=== PATIENT | male | born 1960 | race African-American/Black ===

== ENCOUNTER 2018-05-27 11:05 | Inpatient (IN) | payer OTHER ==
[2018-05-27 12:26] VITALS: BMI 24.6
--- NOTE | 2018-05-27 16:05 | HP ---
CIWA Score - CIWA Score Nausea/Vomitin-No Nausea/No Vomiting Muscle Tremors: 2 Anxiety: 2 Agitation: 2 Paroxysmal Sweats: 2 Orientation: 1-Uncertain about Date Tacttile Disturbances: 0-None Auditory Disturbances: 0-None Visual Disturbances: 0-None Headache: 3-Moderate CIWA-Ar Total Score: 12 Admission [facility] - HPI Chief Complaint: ETOH WITHDRAWAL SYMPTOMS AND COCAINE DEPENDENCE. Allergies/Adverse Reactions: Allergies Allergy/AdvReac Type Severity Reaction Status Date / Time No Known Allergies Allergy Verified 05/27/18 14:58 History of Present Illness: PATIENT PRESENTS WITH ETOH WITHDRAWAL SYMPTOMS AND COCAINE DEPENDENCE. PATIENT BEGAN DRINKING AT AGE 20. PATIENT DRINKS (3) 6 PACKS OF BEER DAILY AND SMOKES 50 DOLLARS OF CRACK DAILY. PATIENT DENIES HX OF SEIZURES. LAST TIME HE USED SUBSTANCES WAS ONE DAY AGO. PATIENT ATTEMPTED DETOX A FEW MONTHS AGO BUT IS FIRST TIME ADMISSION HERE AT [facility]. PMH GLAUCOMA, HLD, DM AND LEGALLY BLIND IN RIGHT EYE. DENIES SI/HI AND SUICIDE ATTEMPTS. Exam Limitations: No Limitations - Ebola screening Have you traveled outside of the country in the last 21 days: No Have you had contact with anyone from an Ebola affected area: No Have you been sick,other than usual withdrawal symptoms: No Do you have a fever: No - Review of Systems Constitutional: Chills, Night Sweats, Changes in sleep EENT: reports: Other (LEGALLY BLIND RIGHT EYE) Respiratory: reports: No Symptoms reported Cardiac: reports: No Symptoms Reported GI: reports: Poor Fluid Intake : reports: Frequency Musculoskeletal: reports: Back Pain, Muscle Pain Integumentary: reports: Sweating Neuro: reports: Tremors Endocrine: reports: No Symptoms Reported Hematology: reports: No Symptoms Reported Psychiatric: reports: Anxious, Depressed Patient History - Patient Medical History Hx Anemia: No Hx Asthma: No Hx Chronic Obstructive Pulmonary Disease (COPD): No Hx Cancer: No Hx Cardiac Disorders: No Hx Congestive Heart Failure: No Hx Hypertension: Yes Hx Hypercholesterolemia: Yes Hx Pacemaker: No HX Cerebrovascular Accident: No Hx Seizures: No Hx Dementia: No Hx Diabetes: Yes (IDDM) Hx Gastrointestinal Disorders: No Hx Liver Disease: No Hx Genitourinary Disorders: No Hx Sexually Transmitted Disorders: No Hx Renal Disease (ESRD): No Hx Thyroid Disease: No Hx Human Immunodeficiency Virus (HIV): No Hx Hepatitis C: No Hx Depression: No Hx Suicide Attempt: No Hx Bipolar Disorder: No Hx Schizophrenia: No - Patient Surgical History Past Surgical History: Yes Hx Neurologic Surgery: No Hx Cataract Extraction: No Hx Cardiac Surgery: No Hx Lung Surgery: No Hx Breast Surgery: No Hx Breast Biopsy: No Hx Abdominal Surgery: No Hx Appendectomy: No Hx Cholecystectomy: No Hx Genitourinary Surgery: No Hx Orthopedic Surgery: No Other Surgical History: right ey sx for glaucoma in 2013/right inguinal hernia repair in 2002 - PPD History Previous Implant?: Yes Documented Results: Negative w/o proof Implanted On Prior [facility] Admission?: No PPD to be Administered?: Yes - Smoking Cessation Smoking history: Current every day smoker Have you smoked in the past 12 months: Yes Aproximately how many cigarettes per day: 5 Hx Chewing Tobacco Use: No Initiated information on smoking cessation: Yes 'Breaking Loose' booklet given: 05/27/18 - Substance & Tx. History Hx Alcohol Use: Yes Hx Substance Use: Yes Substance Use Type: Alcohol, Cocaine Hx Substance Use Treatment: Yes - Substances Abused Crack Route: Smoking Frequency: Daily Amount used: $50-60 Age of first use: 24 Date of Last Use: 05/26/18 Alcohol-vodka/beer Route: Oral Frequency: Daily Amount used: 1 pt./3 (24 oz.) Age of first use: 20 Date of Last Use: 05/26/18 Family Disease History - Family Disease History Family Disease History: Other: Father (SUBSTANCE ABUSE), Mother (ALCOHOLISM) Admission Physical Exam [facility] - Vital Signs Vital Signs: Vital Signs - 24 hr 05/27/18 12:20 Temperature 96.0 F L Pulse Rate 92 H Respiratory 18 Rate Blood Pressure 112/72 - Physical General Appearance: Yes: Appropriately Dressed, Sweating, Anxious HEENTM: Yes: EOMI, Hearing grossly Normal, Normocephalic, Normal Voice, CAYLA ( RIGHT EYE BLINDNESS, LEFT EYE +PERRLA), Pharynx Normal Respiratory: Yes: Chest Non-Tender, Lungs Clear, Normal Breath Sounds, No Respiratory Distress, No Accessory Muscle Use Neck: Yes: No masses,lesions,Nodules, Supple Breast: Yes: Breast Exam Deferred Cardiology: Yes: Regular Rhythm, Regular Rate, S1, S2 Abdominal: Yes: Normal Bowel Sounds, Non Tender, Soft Genitourinary: Yes: Frequency Back: Yes: Normal Inspection, Muscle Spasm Musculoskeletal: Yes: full range of Motion, Gait Steady, Back pain, Muscle Pain Extremities: Yes: Normal Inspection, Normal Range of Motion, Non-Tender, Tremors Neurological: Yes: cash applications coordinator II-XII NML intact, Fully Oriented, Alert, Motor Strength 5/5, Normal Response, Depressed Affect Integumentary: Yes: Normal Color, Warm, Moist Lymphatic: Yes: Within Normal Limits - Diagnostic (1) Alcohol dependence with uncomplicated withdrawal Current Visit: Yes Status: Acute (2) Cocaine dependence Current Visit: Yes Status: Chronic Qualifiers: Substance use status: uncomplicated Qualified Code(s): F14.20 - Cocaine dependence, uncomplicated (3) Diabetes 1.5, managed as type 2 Current Visit: Yes Status: Chronic (4) Glaucoma Current Visit: Yes Status: Chronic Qualifiers: Glaucoma type: unspecified Laterality: unspecified laterality Qualified Code(s): H40.9 - Unspecified glaucoma (5) HTN (hypertension) Current Visit: Yes Status: Acute Qualifiers: Hypertension type: essential hypertension Qualified Code(s): I10 - Essential (primary) hypertension (6) HLD (hyperlipidemia) Current Visit: Yes Status: Chronic Qualifiers: Hyperlipidemia type: unspecified Qualified Code(s): E78.5 - Hyperlipidemia , unspecified (7) Depressed affect Current Visit: Yes Status: Suspected Cleared for Admission [facility] - Detox or Rehab [facility] Level of Care: Medically Managed Detox Regimen/Protocol: Librium [facility] Breath Alcohol Content Breath Alcohol Content: 0.025 Urine Drug Screen - Results Drug Screen Negative: No Urine Drug Screen Results: NISA-Cocaine
[2018-05-27] MEDS ORDERED: ACETAMINOPHEN 325 MG TABLET (FP) PO PRN (16:15)
[2018-05-27] MEDS ORDERED: P-EPHED 60MG/TRIPROLIDI 2.5MG TABLET PO PRN (16:15)
[2018-05-27] MEDS ORDERED: hydrOXYzine PAMOATE 50 MG CAPSULE (FP) PO PRN (16:15)
[2018-05-27] MEDS ORDERED: IBUPROFEN 400 MG TABLET (FP) PO PRN (16:15)
[2018-05-27] MEDS ORDERED: MAG HYDROX/AL HYDROX/SIMETH 30 ML UNIT-DOSE CUP PO PRN (16:15)
[2018-05-27] MEDS ORDERED: NICOTINE POLACRILEX 2 MG GUM BC PRN (16:15)
[2018-05-27] MEDS ORDERED: guaiFENesin/D-METHORPHAN HB 10 ML UNIT-DOSE CUPS PO PRN (16:15)
[2018-05-27] MEDS ORDERED: MENTHOL/PHENOL 1 EACH UD MM PRN (16:15)
[2018-05-27] MEDS ORDERED: LOPERAMIDE HCL 2 MG CAPSULE PO PRN (16:15)
[2018-05-27] MEDS ORDERED: MAGNESIUM HYDROX 2400MG/30ML ORAL SUSPENSION 30 ML CUP PO PRN (16:15)
[2018-05-27] MEDS ORDERED: MAGNESIUM CITRATE 300 ML BOTTLE PO PRN (16:15)
[2018-05-27] MEDS ORDERED: chlordiazePOXIDE HCL 25 MG CAPSULE PO PRN (16:21)
[2018-05-27] MEDS ORDERED: INSULIN SLIDING SCALE (NOVOLOG) 1 VIAL SQ SCH (16:30)
[2018-05-27] MEDS: INSULIN SLIDING SCALE (NOVOLOG) 1 VIAL SQ SCH ×2 (18:29→22:21)
[2018-05-27] MEDS: metFORMIN HCL 500 MG TABLET (FP) PO SCH (18:56)
[2018-05-27] MEDS ORDERED: PATIENT'S OWN MEDICATION (NON-FORMULARY) (Dorzolamide Hcl/Timolol Maleat [Cosopt Eye Drops OU SCH (22:00)
[2018-05-27] MEDS ORDERED: MELATONIN 5 MG TABLETS PO PRN (22:00)
[2018-05-27] MEDS: LATANOPROST 0.005% OPHTH SOLN 2.5ML BOTTLE OU SCH (22:02)
[2018-05-27] MEDS: BRIMONIDINE TARTRATE 0.2% OPHTHALMIC 5 ML BOTTLE OU SCH (22:03)
[2018-05-27] MEDS: TIMOLOL 0.5% OPHTHALMIC SOL 5 ML BOTTLE OU SCH (22:04)
[2018-05-27] MEDS: chlordiazePOXIDE HCL 25 MG CAPSULE PO SCH (22:20)
[2018-05-27] MEDS: INSULIN (LEVEMIR) 100 UNITS/ML UNITS SQ SCH (22:21)
[2018-05-27] MEDS: THIAMINE HCL 100 MG TABLET (FP) PO SCH (22:21)
[2018-05-27] MEDS: ATORVASTATIN CA 10 MG TABLET (FP) PO SCH (22:21)
[2018-05-27] MEDS: DORZOLAMIDE 2% HCL OPHTHALMIC SOLUTION 10 ML BOTTLE OU SCH (22:25)
[2018-05-28] MEDS: chlordiazePOXIDE HCL 25 MG CAPSULE PO SCH ×4 (06:10→23:13)
[2018-05-28] MEDS: metFORMIN HCL 500 MG TABLET (FP) PO SCH ×2 (06:10→17:11)
[2018-05-28] MEDS ORDERED: INSULIN (NOVOLOG) ASPART 100 UNITS/ML 10ML VIAL ONE ×2 (06:32→12:01)
[2018-05-28] MEDS: BRIMONIDINE TARTRATE 0.2% OPHTHALMIC 5 ML BOTTLE OU SCH ×3 (06:39→23:12)
[2018-05-28] MEDS: INSULIN SLIDING SCALE (NOVOLOG) 1 VIAL SQ SCH ×4 (06:40→21:46)
[2018-05-28] MEDS: PRENATAL VITAMINS W/ FOLIC ACID TABLET (FP) PO SCH (11:14)
[2018-05-28] MEDS: acetaZOLAMIDE 250 MG TABLET PO SCH (11:14)
[2018-05-28] MEDS: ASPIRIN 81 MG CHEWABLE TABLETS PO SCH (11:14)
[2018-05-28] MEDS: LISINOPRIL 5 MG TABLET (FP) PO SCH (11:15)
[2018-05-28] MEDS: TIMOLOL 0.5% OPHTHALMIC SOL 5 ML BOTTLE OU SCH ×2 (11:15→22:37)
[2018-05-28] MEDS: DORZOLAMIDE 2% HCL OPHTHALMIC SOLUTION 10 ML BOTTLE OU SCH ×2 (11:15→22:37)
[2018-05-28 11:17] LABS: HEMOGLOBIN 10.7 GM/dL (11.7-16.9); MCHC 33.1 g/dl (32.0-35.9); PLATELET COUNT 169 K/MM3 (134-434)
[2018-05-28 11:19] LABS: HEMATOCRIT 32.3 % (35.4-49); MCH 29.9 pg (25.7-33.7); MEAN CELL VOLUME 90.2 fl (80-96); MEAN PLT VOLUME 8.6 fl (7.5-11.1); RBC 3.59 M/mm3 (4.00-5.60); WHITE BLOOD COUNT 3.5 K/mm3 (4.0-10.0)
[2018-05-28 11:21] LABS: ALBUMIN 3.1 g/dl (3.4-5.0); ANION GAP 9 MMOL/L (8-16); BLOOD UREA NITROGEN 16 mg/dL (7-18); CALCIUM 8.6 mg/dL (8.5-10.1); CHLORIDE 108 mmol/L (98-107); CO2 28 mmol/L (21-32); GLUCOSE,RANDOM 222 mg/dL (74-106); POTASSIUM 3.9 mmol/L (3.5-5.1); SGPT/ALT 29 U/L (13-61); SODIUM 145 mmol/L (136-145)
[2018-05-28 11:24] LABS: ALK PHOS 55 U/L (45-117); BILIRUBIN,TOTAL 0.5 mg/dL (0.2-1.0); CREATININE 0.8 mg/dL (0.55-1.3); SGOT/AST 21 U/L (15-37); TOT PROT 6.2 g/dl (6.4-8.2)
--- NOTE | 2018-05-28 11:59 | CONSULT ---
[facility] Psychiatric Consult - Data Date of interview: 05/28/18 Admission source: [facility] Identifying data: First admission to [facility] for this 57 y/o AA male self- referred for detoxification treatment (alcohol,cocaine).Admitted to [address] [place] [address].patient is ,a father of three,homeless,unemployed and supported on SSI benefits. Substance Abuse History: Confirmed by the patient in this interview.Details in current [facility] report : Smoking history: Current every day smoker. Have you smoked in the past 12 months: Yes. Aproximately how many cigarettes per day: 5. Hx Chewing Tobacco Use: No. Initiated information on smoking cessation: Yes. 'Breaking Loose' booklet given: 05/27/18. - Substance & Tx. History. Hx Alcohol Use: Yes. Hx Substance Use: Yes. Substance Use Type: Alcohol, Cocaine. Hx Substance Use Treatment: Yes. - Substances Abused. Crack. Route: Smoking. Frequency: Daily. Amount used: $50-60. Age of first use: 24. Date of Last Use: 05/26/18. Alcohol-vodka/beer. Route: Oral. Frequency: Daily. Amount used: 1 pt./3 (24 oz.). Age of first use: 20. Date of Last Use : 05/26/18 Medical History: Hypertension,diabetes mellitus,glaucoma (blindness in right eye ),dyslipidemia and a history of right inguinal herniorraphy. Psychiatric History: Patient denies. Physical/Sexual Abuse/Trauma History: Patient denies. Additional Comment: Urine Drug Screen Results: NISA-Cocaine.Noted. Mental Status Exam - Mental Status Exam Alert and Oriented to: Time, Place, Person Cognitive Function: Good Patient Appearance: Well Groomed Mood: Nervous, Withdrawn Affect: Mood Congruent Patient Behavior: Fatigued, Cooperative Speech Pattern: Clear Voice Loudness: Normal Thought Process: Goal Oriented Thought Disorder: Not Present Hallucinations: Denies Suicidal Ideation: Denies Homicidal Ideation: Denies Insight/Judgement: Poor Sleep: Well Appetite: Good Muscle strength/Tone: Normal (no complaint offered) Gait/Station: Other (not observed ; in bed for entire interview) Psychiatric Findings - Problem List ([place] 1, 2,3) (1) Alcohol dependence with uncomplicated withdrawal Current Visit: Yes Status: Acute (2) Cocaine dependence Current Visit: Yes Status: Acute Qualifiers: Substance use status: uncomplicated Qualified Code(s): F14.20 - Cocaine dependence, uncomplicated (3) Nicotine dependence Current Visit: Yes Status: Acute - Initial Treatment Plan Initial Treatment Plan: Psychoeducation.Sleep hygiene.Detoxification.Observation.
[2018-05-28] MEDS: ATORVASTATIN CA 10 MG TABLET (FP) PO SCH (21:47)
[2018-05-28] MEDS: INSULIN (LEVEMIR) 100 UNITS/ML UNITS SQ SCH (21:47)
[2018-05-28] MEDS: LATANOPROST 0.005% OPHTH SOLN 2.5ML BOTTLE OU SCH (22:37)
[2018-05-28] MEDS: THIAMINE HCL 100 MG TABLET (FP) PO SCH (22:39)
[2018-05-29] MEDS: chlordiazePOXIDE HCL 25 MG CAPSULE PO SCH ×3 (05:48→16:58)
[2018-05-29] MEDS ORDERED: INSULIN (NOVOLOG) ASPART 100 UNITS/ML 10ML VIAL ONE ×2 (05:51→06:21)
[2018-05-29] MEDS: BRIMONIDINE TARTRATE 0.2% OPHTHALMIC 5 ML BOTTLE OU SCH ×3 (06:43→22:49)
[2018-05-29] MEDS: metFORMIN HCL 500 MG TABLET (FP) PO SCH ×2 (07:44→16:58)
[2018-05-29] MEDS: INSULIN SLIDING SCALE (NOVOLOG) 1 VIAL SQ SCH ×4 (07:44→22:54)
[2018-05-29] MEDS: ASPIRIN 81 MG CHEWABLE TABLETS PO SCH (10:40)
[2018-05-29] MEDS: PRENATAL VITAMINS W/ FOLIC ACID TABLET (FP) PO SCH (10:40)
[2018-05-29] MEDS: TIMOLOL 0.5% OPHTHALMIC SOL 5 ML BOTTLE OU SCH ×2 (10:41→22:48)
[2018-05-29] MEDS: DORZOLAMIDE 2% HCL OPHTHALMIC SOLUTION 10 ML BOTTLE OU SCH ×2 (10:41→22:48)
[2018-05-29] MEDS: acetaZOLAMIDE 250 MG TABLET PO SCH (10:43)
[2018-05-29] MEDS: LISINOPRIL 5 MG TABLET (FP) PO SCH (10:43)
--- NOTE | 2018-05-29 17:33 | PN ---
S CIWA - CIWA Score Nausea/Vomitin Muscle Tremors: 4-Moderate,w/Arms Extend Anxiety: 4-Mod. Anxious/Guarded Agitation: 3 Paroxysmal Sweats: 3 Orientation: 0-Oriented Tacttile Disturbances: 1-Very Mild Itch/Numbness Auditory Disturbances: 0-None Visual Disturbances: 0-None Headache: 0-None Present CIWA-Ar Total Score: 17 [facility] Progress Note (SOAP) Subjective: Denies any symptoms, appears restless Objective: 05/29/18 17:32 Last Vital Signs Temp Pulse Resp BP Pulse Ox 99.5 F 62 18 108/70 05/29/18 09:52 05/29/18 09:52 05/29/18 09:52 05/29/18 09:52 Laboratory Tests 05/27/18 05/27/18 05/27/18 15:38 18:28 20:39 WBC RBC Hgb Hct MCV MCH MCHC RDW Plt Count MPV Sodium Potassium Chloride Carbon Dioxide Anion Gap BUN Creatinine Creat Clearance w eGFR POC Glucometer 335 353 185 Random Glucose Calcium Total Bilirubin AST ALT Alkaline Phosphatase Total Protein Albumin RPR Titer 05/28/18 05/28/18 05/28/18 06:09 07:50 07:50 WBC 3.5 L RBC 3.59 L Hgb 10.7 L Hct 32.3 L MCV 90.2 MCH 29.9 MCHC 33.1 RDW 14.0 Plt Count 169 MPV 8.6 Sodium 145 Potassium 3.9 Chloride 108 H Carbon Dioxide 28 Anion Gap 9 BUN 16 Creatinine 0.8 Creat Clearance w eGFR > 60 POC Glucometer 247 Random Glucose 222 H Calcium 8.6 Total Bilirubin 0.5 AST 21 ALT 29 Alkaline Phosphatase 55 Total Protein 6.2 L Albumin 3.1 L RPR Titer 05/28/18 05/28/18 05/28/18 07:50 11:50 16:43 WBC RBC Hgb Hct MCV MCH MCHC RDW Plt Count MPV Sodium Potassium Chloride Carbon Dioxide Anion Gap BUN Creatinine Creat Clearance w eGFR POC Glucometer 256 247 Random Glucose Calcium Total Bilirubin AST ALT Alkaline Phosphatase Total Protein Albumin RPR Titer Nonreactive 05/28/18 05/29/18 05/29/18 21:20 05:48 16:17 WBC RBC Hgb Hct MCV MCH MCHC RDW Plt Count MPV Sodium Potassium Chloride Carbon Dioxide Anion Gap BUN Creatinine Creat Clearance w eGFR POC Glucometer 263 308 326 Random Glucose Calcium Total Bilirubin AST ALT Alkaline Phosphatase Total Protein Albumin RPR Titer Labs reviewed Assessment: 05/29/18 17:33 Withdrawal symptoms Plan: Continue detox
--- NOTE | 2018-05-29 22:35 | EKG ---
Test Reason : Blood Pressure : / mmHG Vent. Rate : 062 BPM Atrial Rate : 062 BPM P-R Int : 150 ms QRS Dur : 088 ms QT Int : 388 ms P-R-T Axes : 058 058 045 degrees QTc Int : 393 ms SINUS RHYTHM WITH PREMATURE ATRIAL COMPLEXES OTHERWISE NORMAL ECG NO PREVIOUS ECGS AVAILABLE Confirmed by GERSON CAMPBELL MD ([id number]) on 05/29/2018 10:34:52 PM Referred By: Confirmed By:GERSON CAMPBELL MD
[2018-05-29] MEDS: LATANOPROST 0.005% OPHTH SOLN 2.5ML BOTTLE OU SCH (22:48)
[2018-05-29] MEDS: THIAMINE HCL 100 MG TABLET (FP) PO SCH (22:48)
[2018-05-29] MEDS: ATORVASTATIN CA 10 MG TABLET (FP) PO SCH (22:49)
[2018-05-29] MEDS: INSULIN (LEVEMIR) 100 UNITS/ML UNITS SQ SCH (22:55)
[2018-05-29] MEDS: chlordiazePOXIDE 5 MG CAPSULE PO SCH (23:01)
[2018-05-30] MEDS: chlordiazePOXIDE 5 MG CAPSULE PO SCH ×3 (06:10→17:37)
[2018-05-30] MEDS: BRIMONIDINE TARTRATE 0.2% OPHTHALMIC 5 ML BOTTLE OU SCH ×3 (06:10→22:01)
[2018-05-30] MEDS: metFORMIN HCL 500 MG TABLET (FP) PO SCH ×2 (06:11→16:33)
[2018-05-30] MEDS: INSULIN SLIDING SCALE (NOVOLOG) 1 VIAL SQ SCH ×4 (07:17→22:03)
[2018-05-30] MEDS ORDERED: INSULIN (NOVOLOG) ASPART 100 UNITS/ML 10ML VIAL ONE ×3 (07:19→17:35)
[2018-05-30 10:37] LABS: URINE APPEARANCE CLOUDY; URINE BILIRUBIN NEGATIVE (<2.0 mg/dL); URINE COLOR YELLOW; URINE GLUCOSE (UA) 3+ (NEGATIVE); URINE KETONE NEGATIVE (NEGATIVE); URINE LEUK ESTERASE NEGATIVE (NEGATIVE); URINE NITRITE NEGATIVE (NEGATIVE); URINE PROTEIN NEGATIVE (NEGATIVE); URINE UROBILINOGEN NEGATIVE mg/dL (0.2-1.0)
[2018-05-30] MEDS: DORZOLAMIDE 2% HCL OPHTHALMIC SOLUTION 10 ML BOTTLE OU SCH ×2 (10:42→22:01)
[2018-05-30] MEDS: PRENATAL VITAMINS W/ FOLIC ACID TABLET (FP) PO SCH (10:43)
[2018-05-30] MEDS: acetaZOLAMIDE 250 MG TABLET PO SCH (10:43)
[2018-05-30] MEDS: TIMOLOL 0.5% OPHTHALMIC SOL 5 ML BOTTLE OU SCH ×2 (10:43→22:40)
[2018-05-30] MEDS: ASPIRIN 81 MG CHEWABLE TABLETS PO SCH (10:43)
[2018-05-30] MEDS: LISINOPRIL 5 MG TABLET (FP) PO SCH (10:43)
--- NOTE | 2018-05-30 19:15 | PN ---
S CIWA - CIWA Score Nausea/Vomitin Muscle Tremors: 3 Anxiety: 2 Agitation: 2 Paroxysmal Sweats: 3 Orientation: 0-Oriented Tacttile Disturbances: 0-None Auditory Disturbances: 0-None Visual Disturbances: 0-None Headache: 0-None Present CIWA-Ar Total Score: 12 [facility] Progress Note (SOAP) Subjective: shakes sweats sleep disturbance Objective: 05/30/18 19:14 A & O x 3 Vital Signs Temperature 97.7 F 05/30/18 18:02 Pulse Rate 53 L 05/30/18 18:02 Respiratory Rate 18 05/30/18 18:02 Blood Pressure 94/62 05/30/18 18:02 O2 Sat by Pulse Oximetry (%) Assessment: 05/30/18 18:36 withdrawal sx Plan: continue detox increase fluid continue hyperglycemics and BGM
[2018-05-30] MEDS: ATORVASTATIN CA 10 MG TABLET (FP) PO SCH (22:00)
[2018-05-30] MEDS: THIAMINE HCL 100 MG TABLET (FP) PO SCH (22:02)
[2018-05-30] MEDS: LATANOPROST 0.005% OPHTH SOLN 2.5ML BOTTLE OU SCH (22:02)
[2018-05-30] MEDS: INSULIN (LEVEMIR) 100 UNITS/ML UNITS SQ SCH (22:03)
[2018-05-30] MEDS: chlordiazePOXIDE HCL 10 MG CAPSULE PO SCH (22:42)
[2018-05-31] MEDS: chlordiazePOXIDE HCL 10 MG CAPSULE PO SCH (06:00)
[2018-05-31] MEDS: BRIMONIDINE TARTRATE 0.2% OPHTHALMIC 5 ML BOTTLE OU SCH (06:05)
[2018-05-31] MEDS: metFORMIN HCL 500 MG TABLET (FP) PO SCH (06:06)
[2018-05-31] MEDS: INSULIN SLIDING SCALE (NOVOLOG) 1 VIAL SQ SCH (08:27)
[2018-05-31 09:28] VITALS: BP 98/61; PULSE 71; TEMP 97.4
[2018-05-31] MEDS: TIMOLOL 0.5% OPHTHALMIC SOL 5 ML BOTTLE OU SCH (10:35)
[2018-05-31] MEDS: DORZOLAMIDE 2% HCL OPHTHALMIC SOLUTION 10 ML BOTTLE OU SCH (10:35)
[2018-05-31] MEDS: ASPIRIN 81 MG CHEWABLE TABLETS PO SCH (10:36)
[2018-05-31] MEDS: PRENATAL VITAMINS W/ FOLIC ACID TABLET (FP) PO SCH (10:36)
[2018-05-31] MEDS: LISINOPRIL 5 MG TABLET (FP) PO SCH (10:37)
--- NOTE | 2018-05-31 11:38 | DS ---
[facility] Detox Discharge Summary Admission Date: 05/27/18 Discharge Date: 05/31/18 - History Additional Comments: Withdrawal symptoms. - Physical Exam Results Vital Signs: Vital Signs Temperature 97.4 F L 05/31/18 09:26 Pulse Rate 71 05/31/18 09:26 Respiratory Rate 20 05/31/18 09:26 Blood Pressure 98/61 05/31/18 09:26 O2 Sat by Pulse Oximetry (%) Pertinent Admission Physical Exam Findings: Withdrawal symptoms. Laboratory 05/27/18 05/27/18 05/27/18 15:38 18:28 20:39 WBC RBC Hgb Hct MCV MCH MCHC RDW Plt Count MPV Sodium Potassium Chloride Carbon Dioxide Anion Gap BUN Creatinine Creat Clearance w eGFR POC Glucometer 335 UNITS UNITS 353 UNITS UNITS 185 UNITS UNITS (80-120) (80-120) (80-120) Random Glucose Calcium Total Bilirubin AST ALT Alkaline Phosphatase Total Protein Albumin Urine Color Urine Appearance Urine pH Ur Specific [place] Urine Protein Urine Glucose (UA) Urine Ketones Urine Blood Urine Nitrite Urine Bilirubin Urine Urobilinogen Ur Leukocyte Esterase RPR Titer 05/28/18 05/28/18 05/28/18 06:09 07:50 07:50 WBC 3.5 K/mm3 L K/mm3 (4.0-10.0) RBC 3.59 M/mm3 L M/mm3 (4.00-5.60) Hgb 10.7 GM/dL L GM/dL (11.7-16.9) Hct 32.3 % L % (35.4-49) MCV 90.2 fl fl (80-96) MCH 29.9 pg pg (25.7-33.7) MCHC 33.1 g/dl g/dl (32.0-35.9) RDW 14.0 % % (11.9-15.9) Plt Count 169 K/MM3 K/MM3 (134-434) MPV 8.6 fl fl (7.5-11.1) Sodium 145 mmol/L mmol/L (136-145) Potassium 3.9 mmol/L mmol/L (3.5-5.1) Chloride 108 mmol/L H mmol/L (98-107) Carbon Dioxide 28 mmol/L mmol/L (21-32) Anion Gap 9 MMOL/L MMOL/L (8-16) BUN 16 mg/dL mg/dL (7-18) Creatinine 0.8 mg/dL mg/dL (0.55-1.3) Creat Clearance w eGFR > 60 (>60) POC Glucometer 247 UNITS UNITS (80-120) Random Glucose 222 mg/dL H mg/dL (74-106) Calcium 8.6 mg/dL mg/dL (8.5-10.1) Total Bilirubin 0.5 mg/dL mg/dL (0.2-1.0) AST 21 U/L U/L (15-37) ALT 29 U/L U/L (13-61) Alkaline Phosphatase 55 U/L U/L (45-117) Total Protein 6.2 g/dl L g/dl (6.4-8.2) Albumin 3.1 g/dl L g/dl (3.4-5.0) Urine Color Urine Appearance Urine pH Ur Specific [place] Urine Protein Urine Glucose (UA) Urine Ketones Urine Blood Urine Nitrite Urine Bilirubin Urine Urobilinogen Ur Leukocyte Esterase RPR Titer 05/28/18 05/28/18 05/28/18 07:50 11:50 16:43 WBC RBC Hgb Hct MCV MCH MCHC RDW Plt Count MPV Sodium Potassium Chloride Carbon Dioxide Anion Gap BUN Creatinine Creat Clearance w eGFR POC Glucometer 256 UNITS UNITS 247 UNITS UNITS (80-120) (80-120) Random Glucose Calcium Total Bilirubin AST ALT Alkaline Phosphatase Total Protein Albumin Urine Color Urine Appearance Urine pH Ur Specific [place] Urine Protein Urine Glucose (UA) Urine Ketones Urine Blood Urine Nitrite Urine Bilirubin Urine Urobilinogen Ur Leukocyte Esterase RPR Titer Nonreactive (NONREACTIVE) 05/28/18 05/29/18 05/29/18 21:20 05:48 08:00 WBC RBC Hgb Hct MCV MCH MCHC RDW Plt Count MPV Sodium Potassium Chloride Carbon Dioxide Anion Gap BUN Creatinine Creat Clearance w eGFR POC Glucometer 263 UNITS UNITS 308 UNITS UNITS (80-120) (80-120) Random Glucose Calcium Total Bilirubin AST ALT Alkaline Phosphatase Total Protein Albumin Urine Color Yellow Urine Appearance Cloudy Urine pH 8.0 (5.0-8.0) Ur Specific [place] 1.022 (1.001-1.035) Urine Protein Negative (NEGATIVE) Urine Glucose (UA) 3+ H (NEGATIVE) Urine Ketones Negative (NEGATIVE) Urine Blood Negative (NEGATIVE) Urine Nitrite Negative (NEGATIVE) Urine Bilirubin Negative (<2.0 mg/dL) Urine Urobilinogen Negative mg/dL mg/dL (0.2-1.0) Ur Leukocyte Esterase Negative (NEGATIVE) RPR Titer 05/29/18 05/29/18 05/30/18 16:17 22:52 06:05 WBC RBC Hgb Hct MCV MCH MCHC RDW Plt Count MPV Sodium Potassium Chloride Carbon Dioxide Anion Gap BUN Creatinine Creat Clearance w eGFR POC Glucometer 326 UNITS UNITS 228 UNITS UNITS 302 UNITS UNITS (80-120) (80-120) (80-120) Random Glucose Calcium Total Bilirubin AST ALT Alkaline Phosphatase Total Protein Albumin Urine Color Urine Appearance Urine pH Ur Specific [place] Urine Protein Urine Glucose (UA) Urine Ketones Urine Blood Urine Nitrite Urine Bilirubin Urine Urobilinogen Ur Leukocyte Esterase RPR Titer 05/30/18 05/30/18 05/30/18 11:19 16:19 20:38 WBC RBC Hgb Hct MCV MCH MCHC RDW Plt Count MPV Sodium Potassium Chloride Carbon Dioxide Anion Gap BUN Creatinine Creat Clearance w eGFR POC Glucometer 238 UNITS UNITS 295 UNITS UNITS 229 UNITS UNITS (80-120) (80-120) (80-120) Random Glucose Calcium Total Bilirubin AST ALT Alkaline Phosphatase Total Protein Albumin Urine Color Urine Appearance Urine pH Ur Specific [place] Urine Protein Urine Glucose (UA) Urine Ketones Urine Blood Urine Nitrite Urine Bilirubin Urine Urobilinogen Ur Leukocyte Esterase RPR Titer 05/31/18 06:04 WBC RBC Hgb Hct MCV MCH MCHC RDW Plt Count MPV Sodium Potassium Chloride Carbon Dioxide Anion Gap BUN Creatinine Creat Clearance w eGFR POC Glucometer 211 UNITS UNITS (80-120) Random Glucose Calcium Total Bilirubin AST ALT Alkaline Phosphatase Total Protein Albumin Urine Color Urine Appearance Urine pH Ur Specific [place] Urine Protein Urine Glucose (UA) Urine Ketones Urine Blood Urine Nitrite Urine Bilirubin Urine Urobilinogen Ur Leukocyte Esterase RPR Titer Labs reviewed. - Treatment Hospital Course: Detox Protocol Followed, Detoxed Safely, Responded well, Discharged Condition Good, Rehab Referral Accepted Patient has Accepted a Rehab Referral to: [facility] - Medication Discharge Medications: Ambulatory Orders Aspirin [ASA -] 81 mg PO DAILY 05/27/18 Atorvastatin Ca [Lipitor] 10 mg PO HS 05/27/18 Brimonidine Tartrate [Alphagan 0.2% -] 1 drop OP TID 05/27/18 Dorzolamide HCl/Timolol Maleat [Cosopt Eye Drops] 1 drop OP BID 05/27/18 Folic Acid - 1 mg PO DAILY 05/27/18 Insulin (Novolog) [Novolog] 0 units SQ TID PRN 05/27/18 Insulin Glargine,Hum.rec.anlog [Lantus Solostar] 10 unit SQ HS 05/27/18 Latanoprost 0.005% Eye Drops [Xalatan 0.005% Eye Drops -] 1 drop OP ASDIR Lisinopril [Prinivil] 5 mg PO DAILY 05/27/18 Metformin HCl [Glucophage] 1,000 mg PO BID 05/27/18 Thiamine Mononitrate [Vitamin B-1] 100 mg PO DAILY 05/27/18 acetaZOLAMIDE [Diamox -] 250 mg PO DAILY 05/27/18 - Diagnosis (1) Alcohol dependence with uncomplicated withdrawal Status: Resolved (2) HTN (hypertension) Status: Chronic Qualifiers: Hypertension type: essential hypertension Qualified Code(s): I10 - Essential (primary) hypertension (3) Cocaine dependence Status: Chronic Qualifiers: Substance use status: uncomplicated Qualified Code(s): F14.20 - Cocaine dependence, uncomplicated (4) DM (diabetes mellitus) Status: Chronic Qualifiers: Diabetes mellitus type: type 2 Diabetes mellitus usp insulin use: with superintendent container terminal use Diabetes mellitus complication status: with unspecified complications Qualified Code(s): E11.8 - Type 2 diabetes mellitus with unspecified complications; Z79.4 - terminal supervisor (current) use of insulin (5) Glaucoma Status: Chronic Qualifiers: Glaucoma type: unspecified Laterality: unspecified laterality Qualified Code(s): H40.9 - Unspecified glaucoma (6) HLD (hyperlipidemia) Status: Chronic Qualifiers: Hyperlipidemia type: unspecified Qualified Code(s): E78.5 - Hyperlipidemia , unspecified (7) Nicotine dependence Status: Chronic Qualifiers: Nicotine product type: cigarettes Substance use status: uncomplicated Qualified Code(s): F17.210 - Nicotine dependence, cigarettes, uncomplicated - AMA Did Patient Leave Against Medical Advice: No
== END 2018-05-31 10:57 | disposition other institution (70) | DRG 774 ==
LOC: YASAS 11:05 → Y3N 17:25
PROC: HZ2ZZZZ Detoxification Services for Substance Abuse Treatment (ICD-10-PCS; principal; 2018-05-27)
DX: F10.230 Alcohol dependence with withdrawal, uncomplicated (principal); F14.20 Cocaine dependence, uncomplicated; F17.210 Nicotine dependence, cigarettes, uncomplicated; I10 Essential (primary) hypertension; E78.5 Hyperlipidemia, unspecified; E11.9 Type 2 diabetes mellitus without complications; Z79.4 Long term (current) use of insulin; H54.61 Unqualified visual loss, right eye, normal vision left eye; H40.9 Unspecified glaucoma; R45.89 Other symptoms and signs involving emotional state; Z59.0 Homelessness
CPT/HCPCS: 36415; 80053; 81003; 82962; 85027; 86593; 93005; 93010

== ENCOUNTER 2019-01-02 17:25 | Inpatient (IN) | payer OTHER ==
[2019-01-02 22:48] VITALS: BMI 23.7
--- NOTE | 2019-01-02 23:28 | HP ---
"CIWA Score Nausea/Vomitin-No Nausea/No Vomiting Muscle Tremors: 4-Moderate,w/Arms Extend Anxiety: 4-Mod. Anxious/Guarded Agitation: 4-Moderately Restless Paroxysmal Sweats: 3 (Increased facial moisture) Orientation: 0-Oriented Tacttile Disturbances: 0-None Auditory Disturbances: 0-None Visual Disturbances: 0-None Headache: 0-None Present CIWA-Ar Total Score: 15 - Admission Criteria OASAS Guidelines: Admission for Medically Managed Detox: Requires at least one of the followin. CIWA greater than 12 2. Seizures within the past 24 hours 3. Delirium tremens within the past 24 hours 4. Hallucinations within the past 24 hours 5. Acute intervention needed for co occurring medical disorder 6. Acute intervention needed for co occurring psychiatric disorder 7. Severe withdrawal that cannot be handled at a lower level of care (continued vomiting, continued diarrhea, abnormal vital signs) requiring intravenous medication and/or fluids 8. Patient presents the following: CIWA greater than 12 Admission Criteria Met: Admission criteria met Admission ROS [facility] Chief Complaint: ALCOHOL WITHDRAWAL. Allergies/Adverse Reactions: Allergies Allergy/AdvReac Type Severity Reaction Status Date / Time No Known Allergies Allergy Verified 01/02/19 22:44 History of Present Illness: Here for alcohol detox. Wants 7 days of rehab after detox. Alcohol use began at age 17. States has been drinking current amount for many years. Cocaine use began at age 17. Nicotine use began at age 39. Blackouts - last 2 Weeks ago. Denies seizures or overdoses. PMHx: Glaucoma, HLD, DM; Legally blind (R) eye, HTN MHHx:Depression. Denies thoughts of harming self or others. No MH meds. States hears voices off and on for 2 years. Voices don't say to do anything. Search Terms: Clyde Rosenthal, 1960 Search Date: 01/02/2019 11:27:02 PM The Drug Utilization Report below displays all of the controlled substance prescriptions, if any, that your patient has filled in the last twelve months. The information displayed on this report is compiled from pharmacy submissions to the Department, and accurately reflects the information as submitted by the pharmacies. This report was requested by: Carie Torres | Reference #: [id number] There are no results for the search terms that you entered. Exam Limitations: No Limitations - Ebola screening Have you traveled outside of the country in the last 21 days: No (N) Have you had contact with anyone from an Ebola affected area: No Have you been sick,other than usual withdrawal symptoms: No (Denies recent exposure to measles) Do you have a fever: No - Review of Systems Constitutional: Chills EENT: reports: Double Vision, Nose Congestion, Dental Problems (No teeth. Has upper dentures only. Chews and swallos ok), Other (Legally blind (R) eye) Respiratory: reports: Shortness of Breath (when drinks) Cardiac: reports: No Symptoms Reported GI: reports: No Symptoms Reported : reports: Frequency (Denies burning, pain, or blood w/ urinatiion) Musculoskeletal: reports: No Symptoms Reported Integumentary: reports: No Symptoms Reported Neuro: reports: Numbness (Numbness in hands) Endocrine: reports: Increased Urine Hematology: reports: Blood Clots (States 2 weeks blood clots and was treated in hospital. No discharge medications.) Psychiatric: reports: Judgement Intact, Orientated x3, Agitated, Anxious, Depressed (Denies thoughts of harming self or others) Patient History - Patient Medical History Hx Anemia: No Hx Asthma: No Hx Chronic Obstructive Pulmonary Disease (COPD): No Hx Cancer: No Hx Cardiac Disorders: No Hx Congestive Heart Failure: No Hx Hypertension: Yes Hx Hypercholesterolemia: Yes Hx Pacemaker: No HX Cerebrovascular Accident: No Hx Seizures: No Hx Dementia: No Hx Diabetes: Yes (IDDM) Hx Gastrointestinal Disorders: No Hx Liver Disease: No Hx Genitourinary Disorders: No Hx Sexually Transmitted Disorders: No Hx Renal Disease (ESRD): No Hx Thyroid Disease: No Hx Human Immunodeficiency Virus (HIV): No Hx Hepatitis C: No Hx Depression: No Hx Suicide Attempt: No Hx Bipolar Disorder: No Hx Schizophrenia: No - Patient Surgical History Past Surgical History: Yes Hx Neurologic Surgery: No Hx Cataract Extraction: No Hx Cardiac Surgery: No Hx Lung Surgery: No Hx Breast Surgery: No Hx Breast Biopsy: No Hx Abdominal Surgery: No Hx Appendectomy: No Hx Cholecystectomy: No Hx Genitourinary Surgery: No Hx Section: No Hx Orthopedic Surgery: No Other Surgical History: right ey sx for glaucoma in 2013/right inguinal hernia repair in 2002 - PPD History Previous Implant?: Yes Documented Results: Negative w/proof Implanted On Prior R Admission?: Yes Date: 05/29/18 PPD to be Administered?: No - Smoking Cessation Smoking history: Current every day smoker Have you smoked in the past 12 months: Yes Aproximately how many cigarettes per day: 3 Hx Chewing Tobacco Use: No Initiated information on smoking cessation: Yes 'Breaking Loose' booklet given: 01/02/19 - Substance & Tx. History Hx Alcohol Use: Yes Hx Substance Use: Yes Substance Use Type: Alcohol, Cocaine Hx Substance Use Treatment: Yes (detox, rehab) - Substances abused Alcohol Substance route: Oral Frequency: Daily Amount used: 4-5 [place]ODKA Age of first use: 17 Date of last use: 01/02/19 Cocaine Other (specify): SNIFF Frequency: Daily Amount used: $20-100 Age of first use: 17 Date of last use: 01/02/19 Family Disease History - Family Disease History Family Disease History: Other: Father (SUBSTANCE ABUSE), Mother (ALCOHOLISM) Admission Physical Exam [facility] - Vital Signs Vital Signs: Vital Signs - 24 hr 01/02/19 22:41 Temperature 97.2 F L Pulse Rate 92 H Respiratory 18 Rate Blood Pressure 110/70 - Physical General Appearance: Yes: Appropriately Dressed, Mild Distress, Thin, Tremorous, Irritable, Sweating (Increased facial moisture), Anxious HEENTM: Yes: EOMI, Hearing grossly Normal, Normocephalic, Normal Voice, Rhinorrhea, Other ((R) abnormal pupil/iris. No visual response to light) Respiratory: Yes: Lungs Clear, Normal Breath Sounds, No Respiratory Distress Neck: Yes: No masses,lesions,Nodules, Supple Breast: Yes: Breast Exam Deferred Cardiology: Yes: Regular Rhythm, Regular Rate, S1, S2 Abdominal: Yes: Non Tender, Flat, Soft, Increased Bowel Sounds Genitourinary: Yes: Frequency Back: Yes: Normal Inspection Musculoskeletal: Yes: full range of Motion, Gait Steady Extremities: Yes: Normal Capillary Refill, Normal Inspection, Tremors, Other ( Thickened, elongated toe nails.) Neurological: Yes: Fully Oriented, Alert, Motor Strength 5/5 Integumentary: Yes: Normal Color, Dry (Decreased skin turgor, except for facial moisture), Warm, Diaphoresis (Increased facial moisture) Lymphatic: Yes: Within Normal Limits - Diagnostic (1) Blind right eye Current Visit: Yes Status: Chronic (2) Alcohol dependence with uncomplicated withdrawal Current Visit: Yes Status: Acute (3) Cocaine dependence Current Visit: Yes Status: Chronic Qualifiers: Substance use status: uncomplicated Qualified Code(s): F14.20 - Cocaine dependence, uncomplicated (4) DM (diabetes mellitus) Current Visit: Yes Status: Chronic Qualifiers: Diabetes mellitus type: type 2 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 Diabetes mellitus complication status: with unspecified complications Qualified Code(s): E11.8 - Type 2 diabetes mellitus with unspecified complications; Z79.4 - correction (current) use of insulin (5) Glaucoma Current Visit: Yes Status: Chronic Qualifiers: Glaucoma type: unspecified Laterality: unspecified laterality Qualified Code(s): H40.9 - Unspecified glaucoma (6) HLD (hyperlipidemia) Current Visit: Yes Status: Chronic Qualifiers: Hyperlipidemia type: unspecified Qualified Code(s): E78.5 - Hyperlipidemia , unspecified (7) HTN (hypertension) Current Visit: Yes Status: Chronic Qualifiers: Hypertension type: essential hypertension Qualified Code(s): I10 - Essential (primary) hypertension (8) Nicotine dependence Current Visit: Yes Status: Chronic Qualifiers: Nicotine product type: cigarettes Substance use status: uncomplicated Qualified Code(s): F17.210 - Nicotine dependence, cigarettes, uncomplicated Cleared for Admission [facility] - Detox or Rehab [facility] Level of Care: Medically Managed Detox Regimen/Protocol: Librium Breathalyzer - Breathalyzer Breathalyzer: 0 Urine Drug Screen - Test Device Lot number: [id number] Expiration date: 08/12/20 - Control Is test valid?: Yes - Results Drug screen NEGATIVE: No Urine drug screen results: [facility]ISA-Cocaine Inpatient Rehab Admission - Rehab Decision to Admit Inpatient rehab admission?: No"
[2019-01-02] MEDS ORDERED: NICOTINE POLACRILEX 2 MG GUM BUC PRN (23:40)
[2019-01-02] MEDS ORDERED: ACETAMINOPHEN 325 MG TABLET (FP) PO PRN ×2 (23:40)
[2019-01-02] MEDS ORDERED: IBUPROFEN 400 MG TABLET (FP) PO PRN ×2 (23:40)
[2019-01-02] MEDS ORDERED: BISMUTH SUBSALICYLATE 524 MG/30 ML UD PO PRN (23:40)
[2019-01-02] MEDS ORDERED: MAG HYDROX/AL HYDROX/SIMETH 30 ML UNIT-DOSE CUP PO PRN (23:40)
[2019-01-02] MEDS ORDERED: guaiFENesin 200 MG/10 ML 10 ML UNIT-DOSE CUPS PO PRN (23:40)
[2019-01-02] MEDS ORDERED: MELATONIN 5 MG TABLETS PO PRN (23:40)
[2019-01-02] MEDS ORDERED: MENTHOL/PHENOL 1 EACH UD MM PRN (23:40)
[2019-01-02] MEDS ORDERED: MAGNESIUM HYDROX 2400MG/30ML ORAL SUSPENSION 30 ML CUP PO PRN (23:40)
[2019-01-02] MEDS ORDERED: MAGNESIUM CITRATE 300 ML BOTTLE PO PRN (23:40)
[2019-01-02] MEDS ORDERED: METHOCARBAMOL 500 MG TABLET PO PRN (23:40)
[2019-01-02] MEDS ORDERED: LATANOPROST 0.005% OPHTH SOLN 2.5ML BOTTLE OU SCH (23:45)
[2019-01-03] MEDS ORDERED: chlordiazePOXIDE HCL 25 MG CAPSULE PO PRN (01:02)
[2019-01-03] MEDS ORDERED: chlordiazePOXIDE HCL 25 MG CAPSULE PO ONE (01:02)
[2019-01-03] MEDS: chlordiazePOXIDE HCL 25 MG CAPSULE PO SCH ×4 (05:51→22:01)
[2019-01-03] MEDS ORDERED: INSULIN SLIDING SCALE (NOVOLOG) 1 VIAL SQ ONE ×3 (05:56→11:23)
[2019-01-03] MEDS: INSULIN SLIDING SCALE (NOVOLOG) 1 VIAL SQ SCH ×4 (06:12→22:00)
[2019-01-03] MEDS: metFORMIN HCL 500 MG TABLET (FP) PO SCH ×2 (06:12→16:46)
[2019-01-03] MEDS: BRIMONIDINE TARTRATE 0.2% OPHTHALMIC 5 ML BOTTLE OU SCH ×3 (08:57→21:58)
[2019-01-03] MEDS: LISINOPRIL 5 MG TABLET (FP) PO SCH (09:46)
[2019-01-03] MEDS: PRENATAL VITAMINS W/ FOLIC ACID TABLET (FP) PO SCH (09:46)
[2019-01-03] MEDS: ASPIRIN 81 MG CHEWABLE TABLETS PO SCH (09:46)
[2019-01-03] MEDS ORDERED: PATIENT'S OWN MEDICATION (NON-FORMULARY) (Dorzolamide Hcl/Timolol Maleat [Cosopt Eye Drops OU SCH (10:00)
[2019-01-03] MEDS ORDERED: PATIENT'S OWN MEDICATION (NON-FORMULARY) (Dorzolamide Hcl/Timolol Maleat [Cosopt Eye Drops OP SCH (10:00)
[2019-01-03 10:08] LABS: HEMATOCRIT 36.8 % (35.4-49); HEMOGLOBIN 12.2 GM/dL (11.7-16.9); MCH 29.7 pg (25.7-33.7); MCHC 33.3 g/dl (32.0-35.9); MEAN CELL VOLUME 89.3 fl (80-96); MEAN PLT VOLUME 8.7 fl (7.5-11.1); PLATELET COUNT 217 K/MM3 (134-434); RBC 4.12 M/mm3 (4.00-5.60); RDW 14.2 % (11.9-15.9); WHITE BLOOD COUNT 4.1 K/mm3 (4.0-10.0)
[2019-01-03 10:20] LABS: ALBUMIN 3.4 g/dl (3.4-5.0); ALK PHOS 97 U/L (45-117); ANION GAP 6 MMOL/L (8-16); BILIRUBIN,TOTAL 0.9 mg/dL (0.2-1); BLOOD UREA NITROGEN 21 mg/dL (7-18); CALCIUM 9.7 mg/dL (8.5-10.1); CHLORIDE 96 mmol/L (98-107); CO2 30 mmol/L (21-32); CREATININE 1.1 mg/dL (0.55-1.3); POTASSIUM 4.1 mmol/L (3.5-5.1); SGOT/AST 20 U/L (15-37); SGPT/ALT 33 U/L (13-61); SODIUM 132 mmol/L (136-145); TOT PROT 7.5 g/dl (6.4-8.2)
[2019-01-03 10:47] LABS: GLUCOSE,RANDOM 356 mg/dL (74-106)
[2019-01-03] MEDS: TIMOLOL 0.5% OPHTHALMIC SOL 5 ML BOTTLE OU SCH ×2 (11:13→21:59)
[2019-01-03] MEDS: DORZOLAMIDE 2% HCL OPHTHALMIC SOLUTION 10 ML BOTTLE OU SCH ×2 (11:34→21:59)
--- NOTE | 2019-01-03 17:28 | PN ---
S CIWA - CIWA Score Nausea/Vomitin-No Nausea/No Vomiting Muscle Tremors: 3 Anxiety: 4-Mod. Anxious/Guarded Agitation: 1-Slight > Activity Paroxysmal Sweats: 3 Orientation: 0-Oriented Tacttile Disturbances: 2-Mild Itch/Numbness/Burn Auditory Disturbances: 1-Very Mild Visual Disturbances: 0-None Headache: 0-None Present CIWA-Ar Total Score: 14 BHS Progress Note (SOAP) Subjective: Sweating, Anxious, Tremors. Objective: PATIENT A & O X 3, OBSERVED AMBULATING ON UNIT UNASSISTED. IN NO ACUTE DISTRESS. 01/03/19 17:26 Vital Signs Temperature 97.7 F 01/03/19 13:30 Pulse Rate 86 01/03/19 13:30 Respiratory Rate 18 01/03/19 13:30 Blood Pressure 98/64 01/03/19 13:30 O2 Sat by Pulse Oximetry (%) Laboratory Tests 01/03/19 01/03/19 01/03/19 05:53 07:00 07:00 WBC 4.1 RBC 4.12 Hgb 12.2 Hct 36.8 MCV 89.3 MCH 29.7 MCHC 33.3 RDW 14.2 Plt Count 217 D MPV 8.7 Sodium 132 L Potassium 4.1 Chloride 96 L Carbon Dioxide 30 Anion Gap 6 L BUN 21 H Creatinine 1.1 Creat Clearance w eGFR 68.52 POC Glucometer 429 Random Glucose 356 H* Calcium 9.7 Total Bilirubin 0.9 AST 20 ALT 33 Alkaline Phosphatase 97 Total Protein 7.5 Albumin 3.4 RPR Titer 01/03/19 01/03/19 01/03/19 07:00 11:20 16:25 WBC RBC Hgb Hct MCV MCH MCHC RDW Plt Count MPV Sodium Potassium Chloride Carbon Dioxide Anion Gap BUN Creatinine Creat Clearance w eGFR POC Glucometer 374 355 Random Glucose Calcium Total Bilirubin AST ALT Alkaline Phosphatase Total Protein Albumin RPR Titer Nonreactive LABS NOTED. Assessment: 01/03/19 17:27 WITHDRAWAL SYMPTOMS. HYPERGLYCEMIA. 01/03/19 17:28 Plan: CONTINUE DETOX. INCREASE DAILY PO FLUID / WATER INTAKE.
[2019-01-03] MEDS: THIAMINE HCL 100 MG TABLET (FP) PO SCH (21:57)
[2019-01-03] MEDS: ATORVASTATIN CA 10 MG TABLET (FP) PO SCH (21:57)
[2019-01-03] MEDS: LATANOPROST 0.005% OPHTH SOLN 2.5ML BOTTLE OU SCH (21:58)
[2019-01-03] MEDS: INSULIN (LEVEMIR) 100 UNITS/ML UNITS SQ SCH (22:00)
[2019-01-04] MEDS: chlordiazePOXIDE HCL 25 MG CAPSULE PO SCH ×4 (05:59→22:19)
[2019-01-04] MEDS: metFORMIN HCL 500 MG TABLET (FP) PO SCH ×2 (06:00→17:11)
[2019-01-04] MEDS: BRIMONIDINE TARTRATE 0.2% OPHTHALMIC 5 ML BOTTLE OU SCH ×3 (06:02→22:16)
[2019-01-04] MEDS: INSULIN SLIDING SCALE (NOVOLOG) 1 VIAL SQ SCH ×4 (07:24→22:15)
[2019-01-04] MEDS: ASPIRIN 81 MG CHEWABLE TABLETS PO SCH (10:41)
[2019-01-04] MEDS: LISINOPRIL 5 MG TABLET (FP) PO SCH (10:41)
[2019-01-04] MEDS: PRENATAL VITAMINS W/ FOLIC ACID TABLET (FP) PO SCH (10:43)
[2019-01-04] MEDS: DORZOLAMIDE 2% HCL OPHTHALMIC SOLUTION 10 ML BOTTLE OU SCH ×2 (10:46→22:17)
[2019-01-04] MEDS: TIMOLOL 0.5% OPHTHALMIC SOL 5 ML BOTTLE OU SCH ×2 (10:46→22:16)
--- NOTE | 2019-01-04 10:49 | PN ---
[facility] CIWA - CIWA Score Nausea/Vomitin-Mild Nausea/No Vomiting Muscle Tremors: 3 Anxiety: 1-Mildly Anxious Agitation: 2 Paroxysmal Sweats: 1-Minimal Palms Moist Orientation: 2-Disoriented Date<2 days Tacttile Disturbances: 1-Very Mild Itch/Numbness Auditory Disturbances: 0-None Visual Disturbances: 0-None Headache: 1-Very Mild CIWA-Ar Total Score: 12 S Progress Note (SOAP) Subjective: doing ok today on librium alcohol detox regimen Objective: 01/04/19 10:50 Vital Signs Temperature 97.1 F L 01/04/19 10:41 Pulse Rate 106 H 01/04/19 10:41 Respiratory Rate 18 01/04/19 10:41 Blood Pressure 114/92 01/04/19 10:41 O2 Sat by Pulse Oximetry (%) Laboratory Last Values WBC 4.1 K/mm3 (4.0-10.0) 01/03/19 07:00 RBC 4.12 M/mm3 (4.00-5.60) 01/03/19 07:00 Hgb 12.2 GM/dL (11.7-16.9) 01/03/19 07:00 Hct 36.8 % (35.4-49) 01/03/19 07:00 MCV 89.3 fl (80-96) 01/03/19 07:00 MCH 29.7 pg (25.7-33.7) 01/03/19 07:00 MCHC 33.3 g/dl (32.0-35.9) 01/03/19 07:00 RDW 14.2 % (11.9-15.9) 01/03/19 07:00 Plt Count 217 K/MM3 (134-434) D 01/03/19 07:00 MPV 8.7 fl (7.5-11.1) 01/03/19 07:00 Sodium 132 mmol/L (136-145) L 01/03/19 07:00 Potassium 4.1 mmol/L (3.5-5.1) 01/03/19 07:00 Chloride 96 mmol/L (98-107) L 01/03/19 07:00 Carbon Dioxide 30 mmol/L (21-32) 01/03/19 07:00 Anion Gap 6 MMOL/L (8-16) L 01/03/19 07:00 BUN 21 mg/dL (7-18) H 01/03/19 07:00 Creatinine 1.1 mg/dL (0.55-1.3) 01/03/19 07:00 Creat Clearance w eGFR 68.52 (>60) 01/03/19 07:00 POC Glucometer 123 UNITS (80-120) 01/04/19 05:58 Random Glucose 356 mg/dL (74-106) H* 01/03/19 07:00 Calcium 9.7 mg/dL (8.5-10.1) 01/03/19 07:00 Total Bilirubin 0.9 mg/dL (0.2-1) 01/03/19 07:00 AST 20 U/L (15-37) 01/03/19 07:00 ALT 33 U/L (13-61) 01/03/19 07:00 Alkaline Phosphatase 97 U/L (45-117) 01/03/19 07:00 Total Protein 7.5 g/dl (6.4-8.2) 01/03/19 07:00 Albumin 3.4 g/dl (3.4-5.0) 01/03/19 07:00 RPR Titer Nonreactive (NONREACTIVE) 01/03/19 07:00 lab noted Assessment: 01/04/19 10:50 withdrawal sx diabetes Plan: continue detox insulin coverage
[2019-01-04] MEDS: ATORVASTATIN CA 10 MG TABLET (FP) PO SCH (22:11)
[2019-01-04] MEDS: THIAMINE HCL 100 MG TABLET (FP) PO SCH (22:14)
[2019-01-04] MEDS: INSULIN (LEVEMIR) 100 UNITS/ML UNITS SQ SCH (22:15)
[2019-01-04] MEDS: LATANOPROST 0.005% OPHTH SOLN 2.5ML BOTTLE OU SCH (22:17)
[2019-01-05] MEDS ORDERED: chlordiazePOXIDE HCL 10 MG CAPSULE PO PRN (05:00)
[2019-01-05] MEDS: chlordiazePOXIDE HCL 10 MG CAPSULE PO SCH ×4 (05:59→22:03)
[2019-01-05] MEDS: INSULIN SLIDING SCALE (NOVOLOG) 1 VIAL SQ SCH ×4 (06:00→21:52)
[2019-01-05] MEDS: BRIMONIDINE TARTRATE 0.2% OPHTHALMIC 5 ML BOTTLE OU SCH ×3 (06:00→21:56)
[2019-01-05] MEDS: metFORMIN HCL 500 MG TABLET (FP) PO SCH ×2 (06:01→17:14)
[2019-01-05 10:20] LABS: PH,URINE 6.5 (5.0-8.0); URINE APPEARANCE CLEAR; URINE BILIRUBIN NEGATIVE (NEGATIVE); URINE COLOR YELLOW; URINE GLUCOSE (UA) 3+ (NEGATIVE); URINE KETONE NEGATIVE (NEGATIVE); URINE LEUK ESTERASE NEGATIVE (NEGATIVE); URINE NITRITE NEGATIVE (NEGATIVE); URINE PROTEIN NEGATIVE (NEGATIVE)
[2019-01-05] MEDS: LISINOPRIL 5 MG TABLET (FP) PO SCH (10:38)
[2019-01-05] MEDS: ASPIRIN 81 MG CHEWABLE TABLETS PO SCH (10:38)
[2019-01-05] MEDS: PRENATAL VITAMINS W/ FOLIC ACID TABLET (FP) PO SCH (10:38)
[2019-01-05] MEDS: DORZOLAMIDE 2% HCL OPHTHALMIC SOLUTION 10 ML BOTTLE OU SCH ×2 (10:39→21:59)
[2019-01-05] MEDS: TIMOLOL 0.5% OPHTHALMIC SOL 5 ML BOTTLE OU SCH ×2 (10:40→22:00)
--- NOTE | 2019-01-05 14:13 | PN ---
S CIWA - CIWA Score Nausea/Vomitin-Mild Nausea/No Vomiting Muscle Tremors: 2 Anxiety: 2 Agitation: 2 Paroxysmal Sweats: 1-Minimal Palms Moist Orientation: 1-Uncertain about Date Tacttile Disturbances: 1-Very Mild Itch/Numbness Auditory Disturbances: 0-None Visual Disturbances: 0-None Headache: 1-Very Mild CIWA-Ar Total Score: 11 S Progress Note (SOAP) Subjective: feeling better discuss aftercare with staff social with peers in day room Objective: 01/05/19 14:12 Vital Signs Temperature 96.2 F L 01/05/19 09:21 Pulse Rate 90 01/05/19 09:21 Respiratory Rate 18 01/05/19 09:21 Blood Pressure 101/66 01/05/19 09:21 O2 Sat by Pulse Oximetry (%) Laboratory Last Values WBC 4.1 K/mm3 (4.0-10.0) 01/03/19 07:00 RBC 4.12 M/mm3 (4.00-5.60) 01/03/19 07:00 Hgb 12.2 GM/dL (11.7-16.9) 01/03/19 07:00 Hct 36.8 % (35.4-49) 01/03/19 07:00 MCV 89.3 fl (80-96) 01/03/19 07:00 MCH 29.7 pg (25.7-33.7) 01/03/19 07:00 MCHC 33.3 g/dl (32.0-35.9) 01/03/19 07:00 RDW 14.2 % (11.9-15.9) 01/03/19 07:00 Plt Count 217 K/MM3 (134-434) D 01/03/19 07:00 MPV 8.7 fl (7.5-11.1) 01/03/19 07:00 Sodium 132 mmol/L (136-145) L 01/03/19 07:00 Potassium 4.1 mmol/L (3.5-5.1) 01/03/19 07:00 Chloride 96 mmol/L (98-107) L 01/03/19 07:00 Carbon Dioxide 30 mmol/L (21-32) 01/03/19 07:00 Anion Gap 6 MMOL/L (8-16) L 01/03/19 07:00 BUN 21 mg/dL (7-18) H 01/03/19 07:00 Creatinine 1.1 mg/dL (0.55-1.3) 01/03/19 07:00 Creat Clearance w eGFR 68.52 (>60) 01/03/19 07:00 POC Glucometer 362 UNITS (80-120) 01/05/19 11:50 Random Glucose 356 mg/dL (74-106) H* 01/03/19 07:00 Calcium 9.7 mg/dL (8.5-10.1) 01/03/19 07:00 Total Bilirubin 0.9 mg/dL (0.2-1) 01/03/19 07:00 AST 20 U/L (15-37) 01/03/19 07:00 ALT 33 U/L (13-61) 01/03/19 07:00 Alkaline Phosphatase 97 U/L (45-117) 01/03/19 07:00 Total Protein 7.5 g/dl (6.4-8.2) 01/03/19 07:00 Albumin 3.4 g/dl (3.4-5.0) 01/03/19 07:00 Urine Color Yellow 01/05/19 07:00 Urine Appearance Clear 01/05/19 07:00 Urine pH 6.5 (5.0-8.0) 01/05/19 07:00 Ur Specific [place] 1.023 (1.010-1.035) 01/05/19 07:00 Urine Protein Negative (NEGATIVE) 01/05/19 07:00 Urine Glucose (UA) 3+ (NEGATIVE) H 01/05/19 07:00 Urine Ketones Negative (NEGATIVE) 01/05/19 07:00 Urine Blood Negative (NEGATIVE) 01/05/19 07:00 Urine Nitrite Negative (NEGATIVE) 01/05/19 07:00 Urine Bilirubin Negative (NEGATIVE) 01/05/19 07:00 Urine Urobilinogen 1.0 mg/dL (0.2-1.0) 01/05/19 07:00 Ur Leukocyte Esterase Negative (NEGATIVE) 01/05/19 07:00 RPR Titer Nonreactive (NONREACTIVE) 01/03/19 07:00 lab noted discuss consequences of serum glucose elevation Assessment: 01/05/19 14:13 withdrawal sx Plan: continue detox
[2019-01-05] MEDS: ATORVASTATIN CA 10 MG TABLET (FP) PO SCH (21:49)
[2019-01-05] MEDS: THIAMINE HCL 100 MG TABLET (FP) PO SCH (21:52)
[2019-01-05] MEDS: INSULIN (LEVEMIR) 100 UNITS/ML UNITS SQ SCH (21:52)
[2019-01-05] MEDS: LATANOPROST 0.005% OPHTH SOLN 2.5ML BOTTLE OU SCH (21:57)
[2019-01-06] MEDS ORDERED: chlordiazePOXIDE HCL 10 MG CAPSULE PO SCH (05:00)
[2019-01-06] MEDS: BRIMONIDINE TARTRATE 0.2% OPHTHALMIC 5 ML BOTTLE OU SCH (06:23)
[2019-01-06] MEDS: metFORMIN HCL 500 MG TABLET (FP) PO SCH (06:30)
[2019-01-06] MEDS: INSULIN SLIDING SCALE (NOVOLOG) 1 VIAL SQ SCH ×3 (06:31→11:44)
[2019-01-06 09:13] VITALS: BP 126/77; PULSE 78; TEMP 96.4
[2019-01-06] MEDS: DORZOLAMIDE 2% HCL OPHTHALMIC SOLUTION 10 ML BOTTLE OU SCH (10:48)
[2019-01-06] MEDS: LISINOPRIL 5 MG TABLET (FP) PO SCH (10:48)
[2019-01-06] MEDS: PRENATAL VITAMINS W/ FOLIC ACID TABLET (FP) PO SCH (10:48)
[2019-01-06] MEDS: ASPIRIN 81 MG CHEWABLE TABLETS PO SCH (10:48)
[2019-01-06] MEDS: TIMOLOL 0.5% OPHTHALMIC SOL 5 ML BOTTLE OU SCH (10:49)
--- NOTE | 2019-01-06 11:37 | DS ---
[facility] Detox Discharge Summary Admission Date: 01/03/19 Discharge Date: 01/06/19 - History Present History: Alcohol Dependence Pertinent Past History: Admitted for alcohol detox- pt did well. Completed detox protocol. Pt will f/u with PCP for medications and medical follow-up - Physical Exam Results Vital Signs: Vital Signs Temperature 96.4 F L 01/06/19 09:12 Pulse Rate 78 01/06/19 09:12 Respiratory Rate 18 01/06/19 09:12 Blood Pressure 126/77 01/06/19 09:12 O2 Sat by Pulse Oximetry (%) - Treatment Hospital Course: Detox Protocol Followed, Detoxed Safely, Responded well, Discharged Condition Good - Medication Discharge Medications: Ambulatory Orders Aspirin [ASA -] 81 mg PO DAILY 05/27/18 Atorvastatin Ca [Lipitor] 10 mg PO HS 05/27/18 Brimonidine Tartrate [Alphagan 0.2% -] 1 drop OP TID 05/27/18 Dorzolamide HCl/Timolol Maleat [Cosopt Eye Drops] 1 drop OP BID 05/27/18 Insulin (Novolog) [Novolog] 0 units SQ TID PRN 05/27/18 Insulin Glargine,Hum.rec.anlog [Lantus Solostar] 20 unit SQ HS 05/27/18 Latanoprost 0.005% Eye Drops [Xalatan 0.005% Eye Drops -] 1 drop OP ASDIR Lisinopril [Prinivil] 5 mg PO DAILY 05/27/18 Metformin HCl [Glucophage] 1,000 mg PO BID 05/27/18
== END 2019-01-06 12:00 | disposition home or self-care (01) | DRG 774 ==
LOC: YASAS 17:25 → Y3N 01-03 00:28
PROVIDERS: ADMIT Surgery; ATTEND Surgery
PROC: HZ2ZZZZ Detoxification Services for Substance Abuse Treatment (ICD-10-PCS; principal; 2019-01-03)
DX: F10.230 Alcohol dependence with withdrawal, uncomplicated (principal); F14.20 Cocaine dependence, uncomplicated; F17.210 Nicotine dependence, cigarettes, uncomplicated; F32.9 Major depressive disorder, single episode, unspecified; I10 Essential (primary) hypertension; E78.5 Hyperlipidemia, unspecified; E11.8 Type 2 diabetes mellitus with unspecified complications; Z79.4 Long term (current) use of insulin; H40.9 Unspecified glaucoma; H54.61 Unqualified visual loss, right eye, normal vision left eye; Z59.0 Homelessness
CPT/HCPCS: 36415; 80053; 81003; 82962; 85027; 86593